=== PATIENT | male | born 1990 | race Caucasian/White ===

== ENCOUNTER 2021-01-15 10:57 | Emergency (ER) | payer SELFPAY ==
[~2021-01-15] VITALS: Ht 180.3 cm; Wt 110.0 kg
--- NOTE | 2021-01-15 11:07 | NUR ---
PATIENT ARRIVES WITH PAIN TO RIGHT ANKLE, STATES HE ROLLED IT [employer] W[employer]
--- NOTE | 2021-01-15 11:11 | NUR ---
ICE TO ANKLE.
[2021-01-15] MEDS ORDERED: ACETAMINOPHEN 500 MG TABLET ONE (11:13)
[2021-01-15] MEDS ORDERED: ACETAMINOPHEN 325 MG TABLET ONE (11:15)
[2021-01-15] MEDS ORDERED: ACETAMINOPHEN 325 MG TABLET PO ONE (11:30)
--- NOTE | 2021-01-15 11:48 | NUR ---
patient states painful to walk, so asked pa for crutches and she said that would be ok. crutches teaching and helped him call his house to head home.
[2021-01-15 11:49] VITALS: BP 132/78
== END 2021-01-15 12:02 | disposition home or self-care (01) ==
LOC: ED 11:27
DX: S93.491A Sprain of other ligament of right ankle, initial encounter (principal); F17.290 Nicotine dependence, other tobacco product, uncomplicated; X58.XXXA Exposure to other specified factors, initial encounter; Y93.01 Activity, walking, marching and hiking; Y92.488 Other paved roadways as the place of occurrence of the external cause; Y99.8 Other external cause status
CPT/HCPCS: 99283

== ENCOUNTER 2021-02-11 06:46 | Emergency (ER) | payer MEDICAID, MEDICARE, OTHER ==
[~2021-02-11] VITALS: Ht 182.9 cm; Wt 124.3 kg
[2021-02-11 06:51] VITALS: BP 128/80
[2021-02-11] MEDS ORDERED: PROPARACAINE OPHTH 0.5%, 15ML ONE (07:08)
[2021-02-11] MEDS ORDERED: FLUORESCEIN OPHTHALMIC 1 MG STRIP ONE (07:08)
[2021-02-11] MEDS ORDERED: PROPARACAINE OPHTH 0.5%, 15ML EACHEYE ONE (07:30)
[2021-02-11] MEDS ORDERED: FLUORESCEIN OPHTHALMIC 1 MG STRIP EACHEYE ONE (07:30)
== END 2021-02-11 07:34 | disposition home or self-care (01) ==
LOC: ED 07:28
DX: H10.022 Other mucopurulent conjunctivitis, left eye (principal)
CPT/HCPCS: 99283